=== PATIENT | female | born 1955 | race Caucasian/White ===

== ENCOUNTER → 2017-06-15 | Outpatient (CLI) | payer MEDICARE ==
--- NOTE | 2017-06-15 13:09 | CTL ---
EXAMINATION TYPE: CT Low Dose Lung DATE OF EXAM ORDERED: 06/15/2017 COMPARISON: None HISTORY: . Low Dose CT Lung Screening CT DLP: 69.[address] CTDI: 2.0 mGy IV CONTRAST USED: None. SCREENING VISIT: Second COMPARISON: 04/21/2016 TECHNIQUE: Low dose computed tomography scan was performed through the chest at 1 millimeter thick se ctions and reconstructed images in the coronal plane at [address] DIAGNOSTIC QUALITY: Satisfactory FINDINGS: LUNG NODULES: Right lung: Stable 3 mm nodule right upper lobe at its periphery. No new nodules seen. Left lung: Large calcified granuloma left lower lobe. Stable 3 mm pulmonary nodule left upper lobe. No new nodul es seen. LUNGS: COPD: Severity: Moderate Fibrosis: Severity: Mild Lymph nodes: None Other findings: None RIGHT PLEURAL SPACE: Effusion: None Calcification: None Thickening: None Pneumothorax: None LEFT PLEURAL SPACE: Effusion: None Calcification: None Thickening: None Pneumothorax: None HEART: Heart Size: Mildly enlarged Coronary calcification: Mild Pericardial effusion: None OTHER FINDINGS: Upper abdomen: No significant abnormality Bony thorax: Degenerative changes Supraclavicular region: No significant abnormalityOther: No significant abnormalityI IMPRESSION: Benign FOLLOW UP CT CHEST RECOMMENDATION: Follow-up screening in one year CT LUNG RAD: LUNG RAD CATEGORY 2
== END ==
LOC: RADCTMAIN 11:47
PROVIDERS: ATTEND Internal Medicine
DX: Z12.2 Encounter for screening for malignant neoplasm of respiratory organs (principal); Z87.891 Personal history of nicotine dependence

== ENCOUNTER 2017-11-14 15:40 | Emergency (ER) | payer OTHER, MEDICARE ==
[2017-11-14 15:57] VITALS: TEMP 97.3
[2017-11-14 16:07] LABS: Appearance,Urine Clear (Clear); Bilirubin,Urine Negative (Negative); Blood,Urine Negative (Negative); Color,Urine Light Yellow; Glucose,Urine (UA) Negative (Negative); Ketones,Urine Negative (Negative); Leukocyte Esterase,Urine Negative (Negative); Nitrite,Urine Negative (Negative); Protein,Urine Negative (Negative); Specific Gravity,Urine 1.004 (1.001-1.035); Urobilinogen,Urine <2.0 mg/dL (<2.0)
[2017-11-14] MEDS ORDERED: RX INFO: IV CONTRAST WAS GIVEN 1 EACH MISC MISCELLANE PRN (16:55)
[2017-11-14] MEDS ORDERED: MORPHINE SULFATE 2 MG/ML SYRINGE IVP ONE (17:03)
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
[2017-11-14] MEDS ORDERED: SODIUM CHLORIDE 0.9% 500 ML IV STA (17:14)
[2017-11-14 17:35] LABS: Basophils % (A) 0 %; Eosinophils % (A) 0 %; HCT 42.7 % (34.0-46.0); HGB 13.4 gm/dL (11.4-16.0); Lymphocytes # (A) 2.1 k/uL (1.0-4.8); Lymphocytes % (A) 24 %; MCH 31.3 pg (25.0-35.0); MCHC 31.5 g/dL (31.0-37.0); MCV 99.5 fL (80.0-100.0); Mean Platelet Volume 6.6; Monocytes # (A) 0.5 k/uL (0-1.0); Monocytes % (A) 5 %; Neutrophils # (A) 6.1 k/uL (1.3-7.7); Neutrophils % (A) 69 %; Platelet Count 302 k/uL (150-450); RBC 4.29 m/uL (3.80-5.40); RDW 13.7 % (11.5-15.5); WBC 8.7 k/uL (3.8-10.6)
[2017-11-14 17:39] LABS: ALT 36 U/L (9-52); AST 30 U/L (14-36); Albumin 4.6 g/dL (3.5-5.0); Alkaline Phosphatase 69 U/L (38-126); Amylase 43 U/L (30-110); Anion Gap 9 mmol/L; Blood Urea Nitrogen 19 mg/dL (7-17); Calcium 10.3 mg/dL (8.4-10.2); Carbon Dioxide 28 mmol/L (22-30); Chloride 104 mmol/L (98-107); Glucose 105 mg/dL (74-99); Lipase 41 U/L (23-300); Potassium 5.3 mmol/L (3.5-5.1); Sodium 141 mmol/L (137-145); Total Bilirubin 0.3 mg/dL (0.2-1.3); Total Protein 7.2 g/dL (6.3-8.2)
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
--- NOTE | 2017-11-14 17:57 | XR ---
EXAMINATION TYPE: XR pelvis AP view DATE OF EXAM: 11/14/2017 CLINICAL HISTORY: Pelvic pain TECHNIQUE: A single AP view of the pelvis is obtained. COMPARISON: None. FINDINGS: There is no acute fracture/dislocation evident in the pelvis. The hip and sacroiliac join ts appear symmetric and unremarkable. The overlying soft tissue appears unremarkable. Some type of c atheter overlies the upper pelvis. IMPRESSION: There is no acute fracture or dislocation in the pelvis.
[2017-11-14] MEDS ORDERED: IPRATROPIUM-ALBUTEROL 3 ML NEB INHALATION STA (18:33)
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
[2017-11-14 19:06] VITALS: BP 130/60; RESP 18
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
[2017-11-14 19:08] VITALS: PULSE 80
== END 2017-11-14 19:38 | disposition home or self-care (01) ==
LOC: EC 15:40
DX: S16.1XXA Strain of muscle, fascia and tendon at neck level, initial encounter (principal); R10.12 Left upper quadrant pain; Z87.891 Personal history of nicotine dependence; Z79.899 Other long term (current) drug therapy; Z79.52 Long term (current) use of systemic steroids; Z88.0 Allergy status to penicillin; Z98.890 Other specified postprocedural states; V43.52XA Car driver injured in collision with other type car in traffic accident, initial encounter; Y92.89 Other specified places as the place of occurrence of the external cause
CPT/HCPCS: 36415; 94640; 80053; 82150; 83690; 85025; 81003; 72170; 71046; 72125; 74177; 99284; 96374; 96361; J2270; Q9967

== ENCOUNTER → 2017-12-10 | Outpatient (CLI) | payer MEDICARE ==
--- NOTE | 2017-12-10 16:34 | CT ---
EXAMINATION TYPE: CT abdomen wo con DATE OF EXAM: 12/10/2017 COMPARISON: 11/14/2017 INDICATION: Abdominal pain DLP: 475 mGycm, Automated exposure control for dose reduction was used. CONTRAST: 0 mL of Omnipaque 350. Study performed with Oral Contrast TECHNIQUE: Axial images were obtained from above the diaphragm to the pubic rami in the axial plane a t 5 mm thick sections. Reconstructed images are reviewed on the computer in the coronal plane. FINDINGS: Limited CT sections are obtained the lung bases. There is a 0.7 cm calcification along the medial le ft heart border at the left lung base. Series 3 image 1. This was present previously. Lung bases othe rwise appear clear.. There is a small hiatal hernia present or dilated distal esophagus. Lap band is evident. Contrast is within the stomach. Patient's port appears intact. CT ABDOMEN: Liver: Normal Spleen: Scattered punctate calcified granuloma are present. Pancreas: Normal Adrenal glands: The adrenal glands are normal. Gallbladder: Normal Kidneys: No masses are evident. No hydronephrosis is present. No cysts are present. No renal stone s are evident. Aorta: Vascular calcification is within the aorta. Inferior vena cava: Normal. Loops of bowel distended with oral contrast within the distal small bowel loops appear normal. Proxim al small bowel loops as well as the colon lack oral contrast limiting their evaluation. Anterior abdominal wall appears normal. Subcutaneous tissues appear normal. No internal or anterior a bdominal wall hernia is evident. No hematomas are evident. IMPRESSIONS: 1. No abnormality to account for the patient's abdominal sensation.
== END | disposition home or self-care (01) ==
LOC: RADCTMAIN 15:16
PROVIDERS: ATTEND Surgery
DX: R10.0 Acute abdomen (principal); R10.9 Unspecified abdominal pain
CPT/HCPCS: 74150

== ENCOUNTER 2018-12-27 13:30 | Inpatient (IN) | payer MEDICARE ==
[2018-12-27] MEDS ORDERED: IPRATROPIUM-ALBUTEROL 3 ML NEB INHALATION STA ×2 (14:38→18:52)
--- NOTE | 2018-12-27 14:39 | ED ---
SOB HPI - General Chief Complaint: Shortness of Breath Stated Complaint: SOB Time Seen by Provider: 12/27/18 14:38 Source: patient, RN notes reviewed, old records reviewed Mode of arrival: ambulatory Limitations: no limitations - History of Present Illness Initial Comments: This is a 63-year-old female the ER for evaluation of cough congestion shortness of breath history of COPD History of smoking. Patient states she does not feel well she has no exertional capabilities, severe shortness of breath with any activity. Patient isn't able to even ambulate to her house without getting severely short of breath. Patient stated breathing treatments at home with no significant help. She has been on multiple courses of antibiotics and steroids per primary care at home and has significant worsening symptoms MD Complaint: shortness of breath, cough, "asthma attack", anxiety -: week(s) Severity: moderate Severity scale (1-10): 6 Quality: aching (With cough) Consistency: constant Improves With: rest Worsens With: exertion, movement Known History Of: COPD, asthma Context: recent URI Associated Symptoms: palpitations Treatments Prior to Arrival: bronchodilator - Related Data Home Medications Medication Instructions Recorded Confirmed HYDROcodone/APAP 7.5-325MG [[place] 1 tab PO QID PRN 11/14/17 12/27/18 7.5-325] Ipratropium-Albuterol Nebulize 3 ml INHALATION RT-QID PRN 11/14/17 12/27/18 [Duoneb 0.5 mg-3 mg/3 ml Soln] clonazePAM [KlonoPIN] 1 mg PO TID PRN 11/14/17 12/27/18 Fluticasone/Salmeterol [Advair Hfa 2 puff INHALATION RT-DAILY 12/27/18 12/27/18 230-21 Mcg Inhaler] PARoxetine [Paxil] 10 mg PO DAILY 12/27/18 12/27/18 Allergies Allergy/AdvReac Type Severity Reaction Status Date / Time acetaminophen Allergy Rash/Hives Verified 12/27/18 14:59 [From Tylenol-Codeine #3] codeine Allergy Rash/Hives Verified 12/27/18 14:59 [From Tylenol-Codeine #3] Penicillins Allergy Unknown Verified 12/27/18 14:59 Review of Systems ROS Statement: Those systems with pertinent positive or pertinent negative responses have been documented in the HPI. ROS Other: All systems not noted in ROS Statement are negative. Past Medical History Past Medical History: Asthma, COPD, Osteoarthritis (OA) Additional Past Medical History / Comment(s): back pain History of Any Multi-Drug Resistant Organisms: None Reported Past Surgical History: Hysterectomy, Joint Replacement, Orthopedic Surgery, Tonsillectomy Additional Past Surgical History / Comment(s): lap band surgery,right knee, carpal tunnel, cysts from feet Past Psychological History: Depression Smoking Status: Former smoker Past Alcohol Use History: None Reported Past Drug Use History: None Reported General Exam Limitations: no limitations General appearance: alert, in no apparent distress, anxious Head exam: Present: atraumatic, normocephalic, normal inspection Eye exam: Present: normal appearance, PERRL, EOMI. Absent: scleral icterus, conjunctival injection, periorbital swelling ENT exam: Present: normal exam, mucous membranes moist Neck exam: Present: normal inspection. Absent: tenderness, meningismus, lymphadenopathy Respiratory exam: Present: respiratory distress, wheezes, accessory muscle use, decreased breath sounds, prolonged expiratory. Absent: rales, rhonchi, stridor Cardiovascular Exam: Present: normal rhythm, tachycardia, normal heart sounds. Absent: systolic murmur, diastolic murmur, rubs, gallop, clicks GI/Abdominal exam: Present: soft, normal bowel sounds. Absent: distended, tenderness, guarding, rebound, rigid Extremities exam: Present: normal inspection, full ROM, normal capillary refill. Absent: tenderness, pedal edema, joint swelling, calf tenderness Back exam: Present: normal inspection Neurological exam: Present: alert, oriented X3, CN II-XII intact Psychiatric exam: Present: normal affect, normal mood Skin exam: Present: warm, dry, intact, normal color. Absent: rash Course Vital Signs 12/27/18 12/27/18 12/27/18 14:16 15:04 15:25 Temperature 98.4 F Pulse Rate 93 82 78 Respiratory 18 Rate Blood Pressure 133/68 O2 Sat by Pulse 97 Oximetry 12/27/18 12/27/18 12/27/18 15:43 15:50 16:00 Temperature 98.0 F Pulse Rate 78 87 Respiratory 22 20 20 Rate Blood Pressure 142/81 141/91 O2 Sat by Pulse 99 100 Oximetry 12/27/18 12/27/18 17:00 17:49 Temperature Pulse Rate 79 Respiratory 20 Rate Blood Pressure 139/70 O2 Sat by Pulse 100 97 Oximetry - Reevaluation(s) Reevaluation #1: 12/27/18 18:55 Medical record is reviewed Reevaluation #2: 12/27/18 18:55 Patient began having shortness of breath we'll give repeat breathing treatment - Consultations Consultation #1: Spoke with Dr. Hansen regarding admission, he did evaluate patient here in the ER Medical Decision Making - Medical Decision Making 63 female the ER for eversion positive shortness of breath, COPD exacerbation, asthma exacerbation with outpatient failure. Patient be admitted for continued monitoring of cardiopulmonary status - Lab Data Result diagrams: 12/27/18 14:47 12/27/18 14:47 Lab Results 12/27/18 12/27/18 12/27/18 Range/Units 14:47 14:47 14:47 WBC 8.3 (3.8-10.6) k/uL RBC 4.22 (3.80-5.40) m/uL Hgb 13.9 (11.4-16.0) gm/dL Hct 42.9 (34.0-46.0) % MCV 101.6 H (80.0-100.0) fL MCH 32.8 (25.0-35.0) pg MCHC 32.3 (31.0-37.0) g/dL RDW 15.5 (11.5-15.5) % Plt Count 229 (150-450) k/uL Neutrophils % 92 % Lymphocytes % 4 % Monocytes % 3 % Eosinophils % 1 % Basophils % 0 % Neutrophils # 7.6 (1.3-7.7) k/uL Lymphocytes # 0.3 L (1.0-4.8) k/uL Monocytes # 0.3 (0-1.0) k/uL Eosinophils # 0.1 (0-0.7) k/uL Basophils # 0.0 (0-0.2) k/uL Macrocytosis Slight PT (9.0-12.0) sec INR (<1.2) APTT (22.0-30.0) sec Sodium 136 L (137-145) mmol/L Potassium 5.2 H (3.5-5.1) mmol/L Chloride 102 (98-107) mmol/L Carbon Dioxide 27 (22-30) mmol/L Anion Gap 7 mmol/L BUN 25 H (7-17) mg/dL Creatinine 1.21 H (0.52-1.04) mg/dL Est GFR (CKD-EPI)AfAm 55 (>60 ml/min/1.73 sqM) Est GFR (CKD-EPI)NonAf 48 (>60 ml/min/1.73 sqM) Glucose 96 (74-99) mg/dL Calcium 10.3 H (8.4-10.2) mg/dL Magnesium 2.4 H (1.6-2.3) mg/dL Total Bilirubin 0.6 (0.2-1.3) mg/dL AST 73 H (14-36) U/L ALT 96 H (9-52) U/L Alkaline Phosphatase 70 (38-126) U/L Troponin I (0.000-0.034) ng/mL NT-Pro-B Natriuret Pep 320 pg/mL Total Protein 7.3 (6.3-8.2) g/dL Albumin 4.7 (3.5-5.0) g/dL 12/27/18 12/27/18 Range/Units 14:47 14:47 WBC (3.8-10.6) k/uL RBC (3.80-5.40) m/uL Hgb (11.4-16.0) gm/dL Hct (34.0-46.0) % MCV (80.0-100.0) fL MCH (25.0-35.0) pg MCHC (31.0-37.0) g/dL RDW (11.5-15.5) % Plt Count (150-450) k/uL Neutrophils % % Lymphocytes % % Monocytes % % Eosinophils % % Basophils % % Neutrophils # (1.3-7.7) k/uL Lymphocytes # (1.0-4.8) k/uL Monocytes # (0-1.0) k/uL Eosinophils # (0-0.7) k/uL Basophils # (0-0.2) k/uL Macrocytosis PT 9.7 (9.0-12.0) sec INR 0.9 (<1.2) APTT 20.8 L (22.0-30.0) sec Sodium (137-145) mmol/L Potassium (3.5-5.1) mmol/L Chloride (98-107) mmol/L Carbon Dioxide (22-30) mmol/L Anion Gap mmol/L BUN (7-17) mg/dL Creatinine (0.52-1.04) mg/dL Est GFR (CKD-EPI)AfAm (>60 ml/min/1.73 sqM) Est GFR (CKD-EPI)NonAf (>60 ml/min/1.73 sqM) Glucose (74-99) mg/dL Calcium (8.4-10.2) mg/dL Magnesium (1.6-2.3) mg/dL Total Bilirubin (0.2-1.3) mg/dL AST (14-36) U/L ALT (9-52) U/L Alkaline Phosphatase (38-126) U/L Troponin I 0.041 H* (0.000-0.034) ng/mL NT-Pro-B Natriuret Pep pg/mL Total Protein (6.3-8.2) g/dL Albumin (3.5-5.0) g/dL - EKG Data -: EKG Interpreted by Me (EKG shows sinus rhythm rate of 86 424, QRS 74, QTC 368 ) - Radiology Data Radiology results: report reviewed (Chest x-rays negative for acute disease), image reviewed Disposition Clinical Impression: Acute exacerbation of chronic obstructive airways disease, Asthma with exacerbation Disposition: ADMITTED IP TO THIS HOSP Condition: Fair Is patient prescribed a controlled substance at d/c from ED?: No Referrals: Michael Clarke MD [Primary Care Provider] - 1-2 days
[2018-12-27 15:19] LABS: INR 0.9 (<1.2); Prothrombin Time 9.7 sec (9.0-12.0)
[2018-12-27 15:21] LABS: Basophils % (A) 0 %; Eosinophils # (A) 0.1 k/uL (0-0.7); Eosinophils % (A) 1 %; HCT 42.9 % (34.0-46.0); HGB 13.9 gm/dL (11.4-16.0); Lymphocytes # (A) 0.3 k/uL (1.0-4.8); Lymphocytes % (A) 4 %; MCH 32.8 pg (25.0-35.0); MCHC 32.3 g/dL (31.0-37.0); MCV 101.6 fL (80.0-100.0); Macrocytosis Slight; Mean Platelet Volume 6.2; Monocytes # (A) 0.3 k/uL (0-1.0); Monocytes % (A) 3 %; Neutrophils # (A) 7.6 k/uL (1.3-7.7); Neutrophils % (A) 92 %; Platelet Count 229 k/uL (150-450); RBC 4.22 m/uL (3.80-5.40); RDW 15.5 % (11.5-15.5); WBC 8.3 k/uL (3.8-10.6)
[2018-12-27 15:23] LABS: Albumin 4.7 g/dL (3.5-5.0); Calcium 10.3 mg/dL (8.4-10.2); Magnesium 2.4 mg/dL (1.6-2.3); Potassium 5.2 mmol/L (3.5-5.1); Total Bilirubin 0.6 mg/dL (0.2-1.3); Total Protein 7.3 g/dL (6.3-8.2)
[2018-12-27 15:45] LABS: Partial Thromboplastin Time 20.8 sec (22.0-30.0)
--- NOTE | 2018-12-27 16:31 | XR ---
EXAMINATION TYPE: XR chest 1V portable DATE OF EXAM: 12/27/2018 COMPARISON: Chest x-ray November 14, 2017 HISTORY: Shortness of breath TECHNIQUE: Single frontal view of the chest is obtained. FINDINGS: Calcified nodules or granulomas left lung are redemonstrated. There is no focal air space o pacity, pleural effusion, or pneumothorax seen. The cardiac silhouette size is within normal limits atherosclerotic change in aortic knob. The osseous structures are intact. IMPRESSION: No acute process. No significant change from prior.
[2018-12-27] MEDS ORDERED: methylPREDNISolone SOD SUCCI 125 MG/2 ML VIAL IV STA (18:52)
[2018-12-27] MEDS: SODIUM CHLORIDE 0.9% 1,000 ML IV SCH (19:50)
[2018-12-27] MEDS ORDERED: ALBUTEROL NEBULIZED 2.5 MG/3 ML INHALATION STA (20:39)
[2018-12-27] MEDS: FAMOTIDINE 20 MG TAB PO SCH (22:06)
[2018-12-27] MEDS: HYDROcodone/APAP 7.5-325MG 1 EACH TAB PO PRN (22:08)
--- NOTE | 2018-12-27 22:22 | HP ---
HISTORY AND PHYSICAL Mrs. Danielle is a 63-year-old female who presented to the emergency room with a chief complaint of shortness of breath. HISTORY OF PRESENT ILLNESS: The patient has had for the past several weeks now increasing cough and phlegm production and shortness of breath for which she had received a couple courses of outpatient antibiotics and corticosteroids. Apparently over the weekend and even last week, she was not doing any better. She then increased the corticosteroids she was taken but became more short of breath and came to the emergency room. No unusual chest pain. No fever or chills. She has not been able though to even ambulate about her house without getting short of breath and almost feel like passing out at times. The patient does have a history of moderately persistent asthma with intermittent wheezing. She has had a previous history of smoking and did have a low-dose CT scan performed about a year and half ago, which revealed a small nodule that has been unchanged. She does have chronic pain syndrome related to osteoarthritis of her back and she is on chronic pain medication, but no history of hypertension, diabetes, or stroke. PREVIOUS SURGERIES: Include hysterectomy, previous lap band surgery. She has had right knee joint replacement, carpal tunnel, hysterectomy, tonsillectomy in the past. HOME MEDICATIONS: Include Advair 230-21 2 inhalations twice a day. Klonopin for chronic anxiety 1 mg 3 times a day as needed, Paxil also for anxiety 10 mg daily, DuoNeb respiratory treatments 4 times a day 3 mL and [place] hydrocodone 7.5-325 1 tab 4 times a day as needed for her chronic pain. ALLERGIES: SHE DOES HAVE HISTORY OF ALLERGIES TO REGULAR CODEINE IN THE PAST AND PENICILLINS. REVIEW OF SYSTEMS: Has mentioned in the history of present illness, she denies any unusual headache or visual disturbances. No recent falls or trauma. No nausea or vomiting. No urinary or bowel symptoms. No blood in her stool. No dysuria. No unusual edema. FAMILY HISTORY: Positive for diabetes with her son. SOCIAL HISTORY: She is a former smoker, quit in 2017. She rarely has any alcohol usage. She still lives independently, is not presently . PHYSICAL EXAMINATION: She is alert and oriented, lying in the stretcher in the emergency room. Vital signs revealed temperature of 98.3 with a pulse of 78, respirations 22, blood pressure 141/91, and she was 100% saturated on 2 L. head and neck exam reveals extraocular movements to be intact. Neck is not stiff. There are no carotid bruits, thyromegaly or adenopathy detected. Breasts and pelvic exam is deferred. Lungs do reveal some diffuse inspiratory and expiratory wheezing. Heart tones were regular without murmurs or rubs appreciated. ABDOMEN: Soft and nontender without rebound, guarding or masses detected. Extremities revealed no edema. Neurologically, she was alert and oriented. Cranial nerves intact. No focal weakness in the extremities. LABORATORY TESTING: Revealed a white count of 8.3, hemoglobin 13.9 and a platelet count of 229. Her INR is 0.9. Sodium was 136 with a potassium of 5.2, CO2 content 27, BUN of 25 with a creatinine 1.21, giving her a current GFR and of 48. Her calcium was 10.3, magnesium 2.4. AST was 73, ALT was 96. Troponin slightly elevated at 0.041. Albumin was 4.7. BNP was 320, albumin 4.7. Her EKG showed a normal sinus rhythm, no evidence of ischemic changes and the patient's chest x-ray showed no acute process and there was a granuloma left lung base that was unchanged. No definite infiltrate. IMPRESSION: 1. Asthmatic bronchitis with a exacerbation of underlying chronic persistent asthma in a former smoker. 2. Does have some likely dehydration and prerenal azotemia with elevated BUN and creatinine and also elevated liver function tests. 3. History of polyosteoarthritis specifically of the back and also previous left knee surgery for which she has chronic pain and is on [place]. 4. She also has a chronic anxiety disorder for which she is on Klonopin and Paxil. PLAN: At this time as patient is being admitted, we will continue with the respiratory treatments, corticosteroids, maintenance inhalers. Followup lab testing to be done. Gentle hydration. Consult to Pulmonary Medicine and further recommendations and treatment. Prognosis guarded at this point. MMODL / IJN: [id number] / JOSR
[2018-12-27] MEDS: IPRATROPIUM-ALBUTEROL 3 ML NEB INHALATION PRN (23:08)
[2018-12-27] MEDS: clonazePAM 1 MG TAB PO PRN (23:42)
[2018-12-28] MEDS: methylPREDNISolone SOD SUCCI 125 MG/2 ML VIAL IV SCH ×5 (01:34→23:06)
[2018-12-28] MEDS: IPRATROPIUM-ALBUTEROL 3 ML NEB INHALATION PRN (03:08)
[2018-12-28] MEDS: LORazepam 2 MG/ML INJ IV PRN (03:40)
[2018-12-28] MEDS: SODIUM CHLORIDE 0.9% 1,000 ML IV SCH ×2 (05:56→16:12)
[2018-12-28] MEDS: HYDROcodone/APAP 7.5-325MG 1 EACH TAB PO PRN ×3 (07:20→22:22)
[2018-12-28] MEDS: IPRATROPIUM-ALBUTEROL 3 ML NEB INHALATION SCH ×4 (07:40→20:47)
[2018-12-28] MEDS: SYMBICORT 160-4.5 MCG INHALER INHALATION SCH ×2 (07:40→20:47)
[2018-12-28] MEDS ORDERED: ENOXAPARIN 40 MG/0.4 ML SYRINGE SQ SCH (09:00)
[2018-12-28] MEDS: PARoxetine 10 MG TAB PO SCH (09:16)
[2018-12-28] MEDS: FAMOTIDINE 20 MG TAB PO SCH ×2 (09:16→22:22)
[2018-12-28 10:41] LABS: Creatine Kinase MB 5.8 ng/mL (0.0-2.4)
--- NOTE | 2018-12-28 11:55 | P.PN ---
Progress Note - Text The patient is a 63-year-old female who has a chronic persistent asthma. Usually response to cortical steroids and antibiotics if needed as outpatient. This particular time patient had received 2 courses of prednisone taper without much relief of her shortness of breath. Actually worsened to the point where she could hardly ambulate in the house. She does have a history of tobacco use disorder in the past. Patient has been treated overnight with IV corticosteroids and respiratory treatments. This morning she states she feels somewhat better but still intermittently feels that she needs a respiratory treatment. No marked phlegm production. Temperature is 97.9 with a pulse of 75 and respirations 18. Blood pressure 124/ 71 and she is 99% saturated on 2 L nasal cannula. Patient still retaining some wheezing on expiration diffusely. Heart tones were regular. No unusual edema. No focal neurological changes. No new labs today but will repeat tomorrow morning. Impressions and plans chronic persistent asthma with exacerbation. Likely asthmatic bronchitis. Patient also had some prerenal azotemia with elevated BUN and creatinine along with elevated liver function tests. osteoarthritis with chronic pain syndrome. Chronic anxiety disorder. Continue with present corticosteroids and respiratory treatments. We'll await further recommendations from pulmonary medicine as discussed with patient. We'll repeat CBC and comprehensive metabolic panel for tomorrow morning.
[2018-12-28] MEDS: clonazePAM 1 MG TAB PO PRN ×2 (13:52→22:22)
--- NOTE | 2018-12-28 18:09 | P.CNPUL ---
History of Present Illness Consult date: 12/28/18 Reason for consult: dyspnea, cough, asthma, COPD Chief complaint: Shortness of breath cough and wheezing and failed outpatient therapy History of present illness: 63-year-old female with a remote history of smoking she expresses that she has smoked half to one pack a day for few years than his stopped long time ago, patient has a history of chronic persistent asthma has seen a local gear machine operator in the past but now does not want to see that gear machine operator, patient feels that her asthma medications are not working in the last 2 weeks she's been more short of breath she has been treated with multiple courses of prednisone without any significant relief she does have some dry nonproductive cough denies any chest pain does get short of breath on minimal activity and exertion, I reviewed data revealed that patient had a low dose CT about a year ago and a small nodule has been noted which was stable and unchanged, patient has been on Advair 230/21 2 puffs 2 times a day at home also has a history of significant degree of anxiety disorder she has been using nebulizer treatment at home she feels that when she is on prednisone her respiratory status improved it appears that she has not been formally evaluated for biologic agent for chronic persistent severe ALLERGIC asthma, she denies any presence of birds or bird feeder in around the house, she does have a cat visit short hair does not shed 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 patient does not feel that she has something to do with that Review of Systems All systems: negative Past Medical History Past Medical History: Asthma, COPD, Osteoarthritis (OA) Additional Past Medical History / Comment(s): back pain, heart murmur, MRSA of the hand 2014 History of Any Multi-Drug Resistant Organisms: MRSA Date of last positivie culture/infection: 2014 MDRO Source:: Hand Past Surgical History: Hysterectomy, Joint Replacement, Orthopedic Surgery, Tonsillectomy Additional Past Surgical History / Comment(s): lap band surgery,right knee, carpal tunnel, cysts from feet Past Psychological History: Anxiety, Depression Smoking Status: Former smoker Past Alcohol Use History: None Reported Past Drug Use History: None Reported Medications and Allergies Home Medications Medication Instructions Recorded Confirmed Type HYDROcodone/APAP 7.5-325MG [[place] 1 tab PO QID PRN 11/14/17 12/27/18 History 7.5-325] Ipratropium-Albuterol Nebulize 3 ml INHALATION RT-QID PRN 11/14/17 12/27/18 History [Duoneb 0.5 mg-3 mg/3 ml Soln] clonazePAM [KlonoPIN] 1 mg PO TID PRN 11/14/17 12/27/18 History Fluticasone/Salmeterol [Advair Hfa 2 puff INHALATION RT-BID 12/27/18 12/27/18 History 230-21 Mcg Inhaler] PARoxetine [Paxil] 10 mg PO DAILY 12/27/18 12/27/18 History Allergies Allergy/AdvReac Type Severity Reaction Status Date / Time codeine Allergy Rash/Hives Verified 12/27/18 14:59 [From Tylenol-Codeine #3] latex Allergy Rash/Hives Verified 12/27/18 20:57 Penicillins Allergy Unknown Verified 12/27/18 14:59 Physical Exam Vitals: Vital Signs Temp Pulse Pulse Pulse Resp BP BP 12/28/18 16:36 70 12/28/18 16:22 72 12/28/18 14:35 98.6 F 81 16 122/67 12/28/18 12:00 75 12/28/18 11:48 75 12/28/18 07:53 80 12/28/18 07:49 97.9 F 71 18 124/71 12/28/18 07:42 74 12/28/18 05:24 98.4 F 75 18 115/69 12/28/18 03:19 84 12/28/18 03:09 92 12/28/18 00:40 80 18 12/27/18 23:18 90 18 12/27/18 23:08 92 18 12/27/18 22:33 97.7 F 77 18 147/67 12/27/18 20:00 98.3 F 73 22 141/91 12/27/18 19:15 90 12/27/18 19:00 75 20 155/96 12/27/18 18:55 86 Pulse Ox 12/28/18 16:36 12/28/18 16:22 97 12/28/18 14:35 96 12/28/18 12:00 12/28/18 11:48 12/28/18 07:53 12/28/18 07:49 99 12/28/18 07:42 98 12/28/18 05:24 97 12/28/18 03:19 12/28/18 03:09 12/28/18 00:40 12/27/18 23:18 12/27/18 23:08 12/27/18 22:33 100 12/27/18 20:00 100 12/27/18 19:15 12/27/18 19:00 99 12/27/18 18:55 Intake and Output 12/28/18 12/28/18 12/28/18 06:59 14:59 22:59 Intake Total 240 Balance 240 Intake: Oral 240 Other: Voiding Method Bedside Commode Bedside Commode Bedside Commode # Voids 3 1 - Constitutional General appearance: average body habitus, cooperative, disheveled, mild distress - EENT Eyes: EOMI, PERRLA, poor dentition, normal appearance ENT: hearing grossly normal, normal oropharynx Ears: bilateral: normal - Neck Carotids: bilateral: upstroke normal, bruit absent Thyroid: bilateral: normal size - Respiratory Respiratory: bilateral: diminished, rhonchi, wheezing (Draining both inspiratory expiratory phases) - Cardiovascular Rhythm: regular Heart sounds: normal: S1, S2 - Gastrointestinal General gastrointestinal: decreased bowel sounds, distended, soft - Neurologic Neurologic: CNII-XII intact - Musculoskeletal Musculoskeletal: gait normal, generalized weakness, strength equal bilaterally - Psychiatric Psychiatric: A&O x's 3, appropriate affect, intact judgment & insight Results - Laboratory Findings CBC and BMP: 12/27/18 14:47 12/27/18 14:47 PT/INR, D-dimer PT 9.7 sec (9.0-12.0) 12/27/18 14:47 INR 0.9 (<1.2) 12/27/18 14:47 Abnormal lab findings: Abnormal Labs 12/27/18 12/27/18 12/27/18 14:47 14:47 14:47 MCV 101.6 H Lymphocytes # 0.3 L APTT 20.8 L Sodium 136 L Potassium 5.2 H BUN 25 H Creatinine 1.21 H Calcium 10.3 H Magnesium 2.4 H AST 73 H ALT 96 H Total Creatine Kinase CK-MB (CK-2) Troponin I 12/27/18 12/28/18 14:47 09:24 MCV Lymphocytes # APTT Sodium Potassium BUN Creatinine Calcium Magnesium AST ALT Total Creatine Kinase 138 H CK-MB (CK-2) 5.8 H Troponin I 0.041 H* - Diagnostic Findings Chest x-ray: report reviewed (Overall no significant pathology noted), image reviewed Assessment and Plan Assessment: Acute asthma exacerbation likely Baseline chronic persistent severe asthma Suspect presence of ALLERGIC asthma History of remote smoking and nicotine use possible Baseline COPD cannot be excluded Generalized anxiety disorder Plan: Continue bronchodilator IV steroids Continuation of home medications Will order labs for ALLERGIC asthma Patient to be evaluated further outpatient setting with pulmonary function testing and for biologic agents for chronic persistent severe ALLERGIC asthma Time with Patient: Greater than 30
[2018-12-29] MEDS: SODIUM CHLORIDE 0.9% 1,000 ML IV SCH ×2 (00:11→11:25)
[2018-12-29] MEDS: LORazepam 2 MG/ML INJ IV PRN (04:11)
[2018-12-29] MEDS: HYDROcodone/APAP 7.5-325MG 1 EACH TAB PO PRN ×3 (04:15→17:22)
[2018-12-29] MEDS: IPRATROPIUM-ALBUTEROL 3 ML NEB INHALATION PRN ×3 (04:17→19:22)
[2018-12-29] MEDS: methylPREDNISolone SOD SUCCI 125 MG/2 ML VIAL IV SCH ×4 (05:38→23:14)
[2018-12-29] MEDS: clonazePAM 1 MG TAB PO PRN ×2 (05:50→23:18)
[2018-12-29] MEDS: IPRATROPIUM-ALBUTEROL 3 ML NEB INHALATION SCH ×4 (07:57→19:22)
[2018-12-29] MEDS: SYMBICORT 160-4.5 MCG INHALER INHALATION SCH ×2 (07:57→19:29)
--- NOTE | 2018-12-29 08:01 | P.PN ---
Progress Note - Text The patient is a 63-year-old female who has chronic persistent asthma and was admitted with an exacerbation after failing outpatient treatments with antibiotics and corticosteroids 2. Patient has had some initial relief with IV cortisone and respiratory treatments along with in her inhalers but earlier this morning she did become more short of breath. She is somewhat anxious. Vital signs show temperature 97.5 with a pulse of 67 and respirations 20. Blood pressure 121/63 and she is 98% saturated on 2 L nasal cannula. She does have some bilateral inspiratory wheezing that is still somewhat worsened yesterday. Heart tones were regular. Abdomen nontender. No unusual edema. She is alert and oriented without focal neurological changes. Repeat competence of metabolic panel and CBC are pending. Impressions and plans Pulmonary medicine note regarded and agree with suspected ALLERGIC asthma and need for further evaluation and treatment. This was discussed with patient at bedside this morning. Presently we'll continue with her IV corticosteroids along with her inhalers and respiratory treatments pending further recommendations from pulmonary medicine. Awaiting lab results from this morning also.
[2018-12-29] MEDS: FAMOTIDINE 20 MG TAB PO SCH ×2 (08:16→20:38)
[2018-12-29] MEDS: PARoxetine 10 MG TAB PO SCH (08:16)
[2018-12-29 09:10] LABS: Basophils % (A) 0 %; Eosinophils # (A) 0.1 k/uL (0-0.7); Eosinophils % (A) 1 %; HCT 41.4 % (34.0-46.0); HGB 12.8 gm/dL (11.4-16.0); Hypochromasia Slight; Lymphocytes # (A) 0.2 k/uL (1.0-4.8); Lymphocytes % (A) 2 %; MCH 32.1 pg (25.0-35.0); MCHC 30.9 g/dL (31.0-37.0); MCV 103.8 fL (80.0-100.0); Macrocytosis Moderate; Mean Platelet Volume 6.5; Monocytes # (A) 0.3 k/uL (0-1.0); Monocytes % (A) 3 %; Neutrophils # (A) 12.4 k/uL (1.3-7.7); Neutrophils % (A) 95 %; Platelet Count 192 k/uL (150-450); RBC 3.99 m/uL (3.80-5.40); RDW 15.3 % (11.5-15.5); WBC 13.1 k/uL (3.8-10.6)
[2018-12-29 09:39] LABS: Albumin 3.8 g/dL (3.5-5.0); Calcium 9.7 mg/dL (8.4-10.2); Potassium 5.2 mmol/L (3.5-5.1); Total Bilirubin 0.5 mg/dL (0.2-1.3)
[2018-12-30] MEDS: IPRATROPIUM-ALBUTEROL 3 ML NEB INHALATION SCH ×5 (01:42→19:26)
[2018-12-30] MEDS: IPRATROPIUM-ALBUTEROL 3 ML NEB INHALATION PRN ×2 (01:42→04:04)
[2018-12-30] MEDS: HYDROcodone/APAP 7.5-325MG 1 EACH TAB PO PRN ×3 (04:33→20:18)
[2018-12-30] MEDS: methylPREDNISolone SOD SUCCI 125 MG/2 ML VIAL IV SCH ×4 (06:31→23:20)
[2018-12-30] MEDS: SYMBICORT 160-4.5 MCG INHALER INHALATION SCH ×2 (07:16→19:26)
--- NOTE | 2018-12-30 07:53 | P.PN ---
Progress Note - Text The patient is a 63-year-old female with chronic persistent asthma that has been severe over the past month or so, not responding to outpatient management with corticosteroids and antibiotics. Apparently she still had a rough night to requiring frequent respiratory treatments. She remained somewhat anxious. No apparent chest pain. Not much phlegm production. Patient has just finished a respiratory treatment. She states she feels somewhat better. Last vital signs show a temperature of 96.7 with a pulse of 70 and respirations 20. Blood pressure 150/72 and she was 96% saturated on 2 L. Nasal cannula. Lungs do reveal a slow expiratory wheeze. Heart tones were regular. Abdomen is nontender. No unusual edema. She is alert and oriented without focal deficits. She does seem to be somewhat anxious. Laboratory From yesterday her white count increased to 13.1 but she is on corticosteroids. Hemoglobin stable at 12.8 and platelets 192. Sodium was 136 with a potassium 5.2. Liver function tests were improved with AST decrease in the 31 and ALT decreasing down to 66. IgE was 4.83. Impressions and plans Patient with exacerbation of asthma. Underlying severe chronic persistent. We'll continue with respiratory treatments and rates. She is on her inhalers. With prednisone and long acting beta agonists. We'll wait for further recommendations from pulmonary medicine. She is on medication for her generalized chronic anxiety
[2018-12-30] MEDS: SODIUM CHLORIDE 0.9% 1,000 ML IV SCH ×3 (08:07→18:08)
[2018-12-30] MEDS: clonazePAM 1 MG TAB PO PRN (08:08)
[2018-12-30] MEDS: FAMOTIDINE 20 MG TAB PO SCH ×2 (08:08→20:18)
[2018-12-30] MEDS: PARoxetine 10 MG TAB PO SCH (08:08)
--- NOTE | 2018-12-30 15:01 | P.PN ---
Subjective Progress Note Date: 12/30/18 Principal diagnosis: Acute asthma exacerbation, steroid dependent chronic severe persistent asthma with acute exacerbation, generalized anxiety disorder, history of remote smoking with possible some baseline COPD, evaluate for ALLERGIC asthma 12/30/2018, patient seen eval reexamined during the rounds clinically patient is slightly better with improved breathing however is still have ongoing intermittent wheezing, the hypersensitive pneumonitis panel is pending, IgE level was done noted very low appears to be severely suppressed likely related to IV steroids, patient would like to go home can benefit from performist which is long-acting better to agonist along with Pulmicort pending insurance approval 63-year-old female with a remote history of smoking she expresses that she has smoked half to one pack a day for few years than his stopped long time ago, patient has a history of chronic persistent asthma has seen a local auto service representative in the past but now does not want to see that auto service representative, patient feels that her asthma medications are not working in the last 2 weeks she's been more short of breath she has been treated with multiple courses of prednisone without any significant relief she does have some dry nonproductive cough denies any chest pain does get short of breath on minimal activity and exertion, I reviewed data revealed that patient had a low dose CT about a year ago and a small nodule has been noted which was stable and unchanged, patient has been on Advair 230/21 2 puffs 2 times a day at home also has a history of significant degree of anxiety disorder she has been using nebulizer treatment at home she feels that when she is on prednisone her respiratory status improved it appears that she has not been formally evaluated for biologic agent for chronic persistent severe ALLERGIC asthma, she denies any presence of birds or bird feeder in around the house, she does have a cat visit short hair does not shed 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 not feel that she has something to do with that Objective - Vital Signs Vital signs: Vital Signs Temp 96.7 F L 12/30/18 05:00 Pulse 74 12/30/18 11:18 Resp 20 12/30/18 05:00 BP 150/72 12/30/18 05:00 Pulse Ox 96 12/30/18 05:00 Intake & Output 12/29/18 12/30/18 12/30/18 18:59 06:59 18:59 Other: Voiding Method Toilet Toilet Toilet # Voids 3 2 - Exam - Constitutional General appearance: average body habitus, cooperative, disheveled, mild distress - EENT Eyes: EOMI, PERRLA, poor dentition, normal appearance ENT: hearing grossly normal, normal oropharynx Ears: bilateral: normal - Neck Carotids: bilateral: upstroke normal, bruit absent Thyroid: bilateral: normal size - Respiratory Respiratory: bilateral: diminished, rhonchi, wheezing (Draining both inspiratory expiratory phases) - Cardiovascular Rhythm: regular Heart sounds: normal: S1, S2 - Gastrointestinal General gastrointestinal: decreased bowel sounds, distended, soft - Neurologic Neurologic: CNII-XII intact - Musculoskeletal Musculoskeletal: gait normal, generalized weakness, strength equal bilaterally - Psychiatric Psychiatric: A&O x's 3, appropriate affect, intact judgment & insight - Labs CBC & Chem 7: 12/29/18 08:34 12/29/18 08:34 Assessment and Plan Assessment: Acute asthma exacerbation likely Baseline chronic persistent severe asthma Suspect presence of ALLERGIC asthma History of remote smoking and nicotine use possible Baseline COPD cannot be excluded Generalized anxiety disorder Plan: Continue bronchodilator IV steroids, can be switched to oral bronchodilators at the time of discharge Continuation of home medications Awaiting reports for the labs of ALLERGIC asthma Patient to be evaluated further outpatient setting with pulmonary function testing and for biologic agents for chronic persistent severe ALLERGIC asthma We'll see if patient can be approved for Pulmicort and Perforomist Time with Patient: Greater than 30
[2018-12-30] MEDS ORDERED: DOCUSATE 100 MG CAP PO PRN (20:23)
[2018-12-31] MEDS: IPRATROPIUM-ALBUTEROL 3 ML NEB INHALATION PRN ×2 (03:32→23:38)
[2018-12-31] MEDS: SODIUM CHLORIDE 0.9% 1,000 ML IV SCH ×3 (03:37→21:32)
[2018-12-31] MEDS: HYDROcodone/APAP 7.5-325MG 1 EACH TAB PO PRN ×3 (03:37→21:33)
[2018-12-31] MEDS: methylPREDNISolone SOD SUCCI 125 MG/2 ML VIAL IV SCH ×4 (06:08→23:19)
--- NOTE | 2018-12-31 07:56 | P.PN ---
Progress Note - Text The patient is a 63-year-old female who has rather chronic severe persistent ALLERGIC asthma with an exacerbation that was not responding to outpatient treatments 2. Patient has been placed on IV corticosteroids and respiratory treatments over the past few days with gradual improvement in her symptoms. This morning she states she feels much better although she is still short of breath with exertion in the room. No chest pain. No nausea or vomiting. Her sister is present in the room with her this morning. Vital signs show a temperature of 98.3 with a pulse of 80 and respirations 20. They are unlabored. Blood pressure 128/62 and she is 99% saturated on 2 L. Lungs do show an and expiratory wheeze which is almost cleared. Heart tones were regular. Abdomen nontender. No edema. No neurological changes. No new labs this morning. Impression and plans Resolving exacerbation of ALLERGIC asthma. Associated with chronic severe persistent ALLERGIC asthma. I discussed with patient and sister in room. Possible discharge later today if okay with Dr. Ruiz, pulmonary medicine. Discussed importance of following up with pulmonary medicine for further testing and possible treatment of her underlying ALLERGIC asthma to prevent further exacerbations. Also will see patient back in the office next week. We'll await Dr. Ruiz's recommendations for outpatient medications and treatment. Home oxygen. Prognosis overall is good with continued sensation of smoking and compliance with workup and treatments. Discussed with nursing staff this morning.
[2018-12-31] MEDS: SYMBICORT 160-4.5 MCG INHALER INHALATION SCH ×2 (08:02→19:11)
[2018-12-31] MEDS: IPRATROPIUM-ALBUTEROL 3 ML NEB INHALATION SCH ×4 (08:02→19:11)
[2018-12-31] MEDS: PARoxetine 10 MG TAB PO SCH (09:38)
[2018-12-31] MEDS: FAMOTIDINE 20 MG TAB PO SCH ×2 (09:38→21:33)
--- NOTE | 2018-12-31 14:36 | P.PN ---
Subjective Progress Note Date: 12/31/18 Principal diagnosis: Acute asthma exacerbation, steroid dependent chronic severe persistent asthma with acute exacerbation, generalized anxiety disorder, history of remote smoking with possible some baseline COPD, evaluate for ALLERGIC asthma 12/31/2018, patient seen evjuan examined during the rounds clinically slightly improved though by the head and acute episode of shortness of breath and wheezing post shower have clear audible wheezing has dry nonproductive cough denies any chest pain it appears that patient is not ready for discharge I have written the prescription for perform mist, Pulmicort, DuoNeb as needed and tapering steroids agree with discharge planning next 24 hours if remains stable in the meantime continue IV steroids and breathing treatments and follow clinical course closely 12/30/2018, patient seen florinda reexamined during the rounds clinically patient is slightly better with improved breathing however is still have ongoing intermittent wheezing, the hypersensitive pneumonitis panel is pending, IgE level was done noted very low appears to be severely suppressed likely related to IV steroids, patient would like to go home can benefit from performist which is long-acting better to agonist along with Pulmicort pending insurance approval 63-year-old female with a remote history of smoking she expresses that she has smoked half to one pack a day for few years than his stopped long time ago, patient has a history of chronic persistent asthma has seen a local perinatal technician in the past but now does not want to see that perinatal technician, patient feels that her asthma medications are not working in the last 2 weeks she's been more short of breath she has been treated with multiple courses of prednisone without any significant relief she does have some dry nonproductive cough denies any chest pain does get short of breath on minimal activity and exertion, I reviewed data revealed that patient had a low dose CT about a year ago and a small nodule has been noted which was stable and unchanged, patient has been on Advair 230/21 2 puffs 2 times a day at home also has a history of significant degree of anxiety disorder she has been using nebulizer treatment at home she feels that when she is on prednisone her respiratory status improved it appears that she has not been formally evaluated for biologic agent for chronic persistent severe ALLERGIC asthma, she denies any presence of birds or bird feeder in around the house, she does have a cat visit short hair does not shed 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 Q10H [facility] Rx#:[id number] Oral 480 Other: Voiding Method Toilet Toilet Toilet # Voids 2 # Bowel Movements 1 - Exam - Constitutional General appearance: average body habitus, cooperative, disheveled, mild distress - EENT Eyes: EOMI, PERRLA, poor dentition, normal appearance ENT: hearing grossly normal, normal oropharynx Ears: bilateral: normal - Neck Carotids: bilateral: upstroke normal, bruit absent Thyroid: bilateral: normal size - Respiratory Respiratory: bilateral: diminished, rhonchi, wheezing (Draining both inspiratory expiratory phases) - Cardiovascular Rhythm: regular Heart sounds: normal: S1, S2 - Gastrointestinal General gastrointestinal: decreased bowel sounds, distended, soft - Neurologic Neurologic: CNII-XII intact - Musculoskeletal Musculoskeletal: gait normal, generalized weakness, strength equal bilaterally - Psychiatric Psychiatric: A&O x's 3, appropriate affect, intact judgment & insight - Labs CBC & Chem 7: 12/29/18 08:34 12/29/18 08:34 Assessment and Plan Assessment: Acute asthma exacerbation likely Baseline chronic persistent severe asthma Suspect presence of ALLERGIC asthma History of remote smoking and nicotine use possible Baseline COPD cannot be excluded Generalized anxiety disorder Plan: Continue bronchodilator IV steroids, can be switched to oral bronchodilators at the time of discharge, his prescription provided Continuation of home medications [facility]scape also provided for a Perforomist and Pulmicort Awaiting reports for the labs of ALLERGIC asthma Patient to be evaluated further outpatient setting with pulmonary function testing and for biologic agents for chronic persistent severe ALLERGIC asthma Time with Patient: Greater than 30
[2018-12-31] MEDS: clonazePAM 1 MG TAB PO PRN (21:33)
[2019-01-01] MEDS: IPRATROPIUM-ALBUTEROL 3 ML NEB INHALATION PRN ×2 (03:40→23:42)
[2019-01-01] MEDS: methylPREDNISolone SOD SUCCI 125 MG/2 ML VIAL IV SCH ×4 (05:35→23:15)
[2019-01-01] MEDS: HYDROcodone/APAP 7.5-325MG 1 EACH TAB PO PRN ×3 (05:35→19:14)
[2019-01-01] MEDS: SODIUM CHLORIDE 0.9% 1,000 ML IV SCH ×3 (05:35→20:46)
[2019-01-01] MEDS: PARoxetine 10 MG TAB PO SCH (07:52)
[2019-01-01] MEDS: FAMOTIDINE 20 MG TAB PO SCH ×2 (07:52→20:43)
[2019-01-01] MEDS: SYMBICORT 160-4.5 MCG INHALER INHALATION SCH ×2 (07:59→19:04)
[2019-01-01] MEDS: IPRATROPIUM-ALBUTEROL 3 ML NEB INHALATION SCH ×4 (07:59→19:04)
--- NOTE | 2019-01-01 09:47 | P.PN ---
Progress Note - Text The patient is a 63-year-old female with a chronic severe persistent ALLERGIC asthma with an acute exacerbation not responding to outpatient treatments. Patient presently on IV corticosteroids along with her respiratory treatments. She has been evaluated by pulmonary medicine and please refer to their progress notes. The patient seems to be having intermittent episodes of increasing shortness of breath. Especially when she is up trying to ambulate. This morning as I walked into the room she was standing up and having heavy breathing. Prolonged expiratory phase. Audible wheezing. Baseline Vital signs show temperature 97.5 with a pulse of 87 and respirations 18. Blood pressure 125/69 and she is 98% saturated on 2 L. But as mentioned presently she is short of breath having prolonged expiratory phase. Lungs do reveal diffuse expiratory wheezing. And generally diminished breath sounds. Heart tones were regular. No unusual edema. No focal neurological changes. Apparently patient had testing for home oxygen and did not qualify Impressions and plans Because of her continued intermittent symptomatology at this time we'll hold discharge and continue present treatment and medications and will wait for further recommendations from pulmonary medicine. IV decreased from 100-[address] Luu on medical call for me over the weekend.
[2019-01-01] MEDS: clonazePAM 1 MG TAB PO PRN (23:16)
--- NOTE | 2019-01-01 23:21 | P.PN ---
Subjective Progress Note Date: 01/01/19 Principal diagnosis: Acute asthma exacerbation, steroid dependent chronic severe persistent asthma with acute exacerbation, generalized anxiety disorder, history of remote smoking with possible some baseline COPD, evaluate for ALLERGIC asthma 01/01/2019, patient seen florinda reexamined during the rounds clinically slightly improved has been having significant wheezing cough congestion but in the last 6 -8 hours respiratory status is slightly better wheezing has substantially improved she able to ambulate now she is planning for possible discharge in next 24 hours labs reviewed medications reviewed care plan discussed with the patient at length 12/31/2018, patient seen florinda examined during the rounds clinically slightly improved though by the head and acute episode of shortness of breath and wheezing post shower have clear audible wheezing has dry nonproductive cough denies any chest pain it appears that patient is not ready for discharge I have written the prescription for perform mist, Pulmicort, DuoNeb as needed and tapering steroids agree with discharge planning next 24 hours if remains stable in the meantime continue IV steroids and breathing treatments and follow clinical course closely 12/30/2018, patient seen florinda reexamined during the rounds clinically patient is slightly better with improved breathing however is still have ongoing intermittent wheezing, the hypersensitive pneumonitis panel is pending, IgE level was done noted very low appears to be severely suppressed likely related to IV steroids, patient would like to go home can benefit from performist which is long-acting better to agonist along with Pulmicort pending insurance approval 63-year-old female with a remote history of smoking she expresses that she has smoked half to one pack a day for few years than his stopped long time ago, patient has a history of chronic persistent asthma has seen a local hand alterations tailor in the past but now does not want to see that hand alterations tailor, patient feels that her asthma medications are not working in the last 2 weeks she's been more short of breath she has been treated with multiple courses of prednisone without any significant relief she does have some dry nonproductive cough denies any chest pain does get short of breath on minimal activity and exertion, I reviewed data revealed that patient had a low dose CT about a year ago and a small nodule has been noted which was stable and unchanged, patient has been on Advair 230/21 2 puffs 2 times a day at home also has a history of significant degree of anxiety disorder she has been using nebulizer treatment at home she feels that when she is on prednisone her respiratory status improved it appears that she has not been formally evaluated for biologic agent for chronic persistent severe ALLERGIC asthma, she denies any presence of birds or bird feeder in around the house, she does have a cat visit short hair does not shed 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 Q10H [facility] Rx#:[id number] Sodium Chloride 0.9% 1, 100 400 000 ml @ 50 mls/hr IV . Q20H [facility] Rx#:[id number] Other: Voiding Method Toilet Toilet Bedside Commode Bedside Commode # Voids 1 1 - Exam - Constitutional General appearance: average body habitus, cooperative, disheveled, mild distress - EENT Eyes: EOMI, PERRLA, poor dentition, normal appearance ENT: hearing grossly normal, normal oropharynx Ears: bilateral: normal - Neck Carotids: bilateral: upstroke normal, bruit absent Thyroid: bilateral: normal size - Respiratory Respiratory: bilateral: diminished, rhonchi, wheezing (Draining both inspiratory expiratory phases) - Cardiovascular Rhythm: regular Heart sounds: normal: S1, S2 - Gastrointestinal General gastrointestinal: decreased bowel sounds, distended, soft - Neurologic Neurologic: CNII-XII intact - Musculoskeletal Musculoskeletal: gait normal, generalized weakness, strength equal bilaterally - Psychiatric Psychiatric: A&O x's 3, appropriate affect, intact judgment & insight - Labs CBC & Chem 7: 12/29/18 08:34 12/29/18 08:34 Assessment and Plan Assessment: Acute asthma exacerbation likely Baseline chronic persistent severe asthma Suspect presence of ALLERGIC asthma History of remote smoking and nicotine use possible Baseline COPD cannot be excluded Generalized anxiety disorder Plan: Continue bronchodilator IV steroids, can be switched to oral bronchodilators at the time of discharge, prescription provided Continuation of home medications Prescription also provided for a Perforomist and Pulmicort Awaiting reports for the labs of ALLERGIC asthma Patient to be evaluated further outpatient setting with pulmonary function testing and for biologic agents for chronic persistent severe ALLERGIC asthma Time with Patient: Greater than 30
[2019-01-02] MEDS: HYDROcodone/APAP 7.5-325MG 1 EACH TAB PO PRN (04:15)
[2019-01-02] MEDS: LORazepam 2 MG/ML INJ IV PRN (04:18)
[2019-01-02] MEDS: IPRATROPIUM-ALBUTEROL 3 ML NEB INHALATION PRN (05:00)
[2019-01-02] MEDS: methylPREDNISolone SOD SUCCI 125 MG/2 ML VIAL IV SCH (05:52)
[2019-01-02 06:04] VITALS: BP 158/74; RESP 17; TEMP 97.4
[2019-01-02] MEDS: FAMOTIDINE 20 MG TAB PO SCH (07:47)
[2019-01-02] MEDS: PARoxetine 10 MG TAB PO SCH (07:47)
[2019-01-02] MEDS: SYMBICORT 160-4.5 MCG INHALER INHALATION SCH (08:22)
[2019-01-02] MEDS: IPRATROPIUM-ALBUTEROL 3 ML NEB INHALATION SCH ×2 (08:22→10:56)
--- NOTE | 2019-01-02 10:20 | P.DS ---
Providers Date of admission: 12/27/18 18:52 Attending physician: Michael Clarke Consults: 12/27/18 21:19 Consult Physician Routine Consulting Provider: Cliff Ruiz Consult Reason/Comments: COPD exacerbation, asthma Do you want consulting provider notified?: Yes, Notify in am Primary care physician: Michael Clarke The patient is a 63-year-old female with chronic severe persistent ALLERGIC asthma with an acute exacerbation who did not respond to outpatient regimens with antibiotics and corticosteroids 2. Patient required admission and consultation with pulmonary medicine and please refer to Dr. Ruiz's consultation and progress notes. Labs have been sent for workup for recurrent ALLERGIC asthma and most results are pending. Initial laboratory work revealed a white count of 8.3 and this increased to 13.1 while on IV corticosteroids. Hemoglobin was stable at 12-13. Mild increase of MCV to 103. Platelet counts around 200,000. Coagulation studies unremarkable. Mildly low sodium at 136 with a mildly elevated potassium of 5.2. BUN of 25 with creatinine of 1.21 given her a GFR initially of 48 but did increase to GFR of 68 with hydration. Her blood sugar remained around 100. Initial liver enzymes were slightly elevated with an AST of 73 and an ALT of 96. Both decreased on repeat testing. Albumin was 3.8. IgE was 4.83 but likely secondary to recent prednisone usage. Chest x-ray revealed no acute process and no significant change from earlier in the year. EKG demonstrated a normal sinus rhythm. No ischemic changes. Exam today reveals her to be sitting up at side of the bed. No acute distress. Vital signs are stable with a normal temperature. Respirations are unlabored. Rate of 17. Pulse of 96. Blood pressure 158/74 and she is 98% saturated on room air. Lungs were generally clear with very minimal end expiratory wheeze. Heart tones were regular. She is alert and oriented without any focal neurological changes. Hospital course Patient did clear with respiratory treatments and corticosteroids. Testing to see if she qualified for home oxygen use did not support home oxygen therapy. Labs have been sent for further ALLERGIC testing and they are pending at this dictation. Patient slowly improved with treatment although did have several intermittent exacerbations. But at this time she has remained stable and plans are for discharge to home. Home medications She has been ordered a prednisone taper and DuoNeb treatments per Dr. Ruiz. She is to continue her home medications that include Advair 230-21 g inhaler 2 puffs twice a day Klonopin 1 mg 3 times a day Paxil 10 mg daily In Coyote 7.5-325 one 4 times a day as needed for chronic pain. Patient obtains through the office and is monitored for usage. Discharge diagnoses 1. Persistent severe ALLERGIC asthma with acute exacerbation that did not respond to outpatient treatment. 2. Acute on chronic stage III renal failure secondary to prerenal azotemia related to underlying exacerbation of COPD and dehydration. Resolved with hydration therapy. 3. Tobacco usage history. Post low-dose computed tomography scan in 2017. 4. Chronic lumbar pain secondary to osteoarthritis, chronic pain syndrome. 5. Previous surgeries that include hysterectomy, lap band surgery, right knee replacement, carpal tunnel and tonsillectomy in the past Diet as tolerated. Decrease in activity level pending further improvement in pulmonary status. Follow-up with myself this coming week in the office and follow-up with Dr. Ruiz , systems testing laboratory technician 1 week. She will call to set up. Patient Condition at Discharge: Fair Plan - Discharge Summary Discharge Rx Participant: Yes New Discharge Prescriptions: No Action clonazePAM [KlonoPIN] 1 mg PO TID PRN PRN Reason: Anxiety HYDROcodone/APAP 7.5-325MG [Coyote 7.5-325] 1 tab PO QID PRN PRN Reason: Pain Ipratropium-Albuterol Nebulize [Duoneb 0.5 mg-3 mg/3 ml Soln] 3 ml INHALATION RT-QID PRN PRN Reason: Shortness Of Breath PARoxetine [Paxil] 10 mg PO DAILY Fluticasone/Salmeterol [Advair Hfa 230-21 Mcg Inhaler] 2 puff INHALATION RT- BID Discharge Medication List HYDROcodone/APAP 7.5-325MG [Coyote 7.5-325] 1 tab PO QID PRN 11/14/17 [History] Ipratropium-Albuterol Nebulize [Duoneb 0.5 mg-3 mg/3 ml Soln] 3 ml INHALATION RT -QID PRN 11/14/17 [History] clonazePAM [KlonoPIN] 1 mg PO TID PRN 11/14/17 [History] Fluticasone/Salmeterol [Advair Hfa 230-21 Mcg Inhaler] 2 puff INHALATION RT-BID 12/27/18 [History] PARoxetine [Paxil] 10 mg PO DAILY 12/27/18 [History] Follow up Appointment(s)/Referral(s): Michael Clarke MD [Primary Care Provider] - 1-2 days Cliff Ruiz MD [STAFF PHYSICIAN] - 1 Week
[2019-01-02 11:09] VITALS: PULSE 91
[2019-01-04 01:35] LABS: Alternaria Alternata IgG <2.0 mcg/mL (< 13.6); Aspergillus fumigatus IgG Not detected (Not detected); Aureobasidium pullulans IgG <2.0 mcg/mL (< 13.6); Cladosporium herbarium IgG 6.8 mcg/mL (< 14.7); Phoma ssp. IgG 2.7 mcg/mL (< 6.6); Saccaharomospora viridis Not detected (Not detected); Saccaharopoly. rectivirgula Not detected (Not detected)
== END 2019-01-02 11:20 | disposition home or self-care (01) | DRG 202 ==
LOC: EC 13:30 → 3NMEDONC 18:52
PROVIDERS: ADMIT Internal Medicine; ATTEND Internal Medicine
DX: J45.51 Severe persistent asthma with (acute) exacerbation (principal); J44.1 Chronic obstructive pulmonary disease with (acute) exacerbation; N17.9 Acute kidney failure, unspecified; N18.3 Chronic kidney disease, stage 3 (moderate); E86.0 Dehydration; M47.816 Spondylosis without myelopathy or radiculopathy, lumbar region; G89.4 Chronic pain syndrome; F41.1 Generalized anxiety disorder; F32.9 Major depressive disorder, single episode, unspecified; Z79.51 Long term (current) use of inhaled steroids; Z79.899 Other long term (current) drug therapy; Z90.710 Acquired absence of both cervix and uterus; Z87.891 Personal history of nicotine dependence; Z86.14 Personal history of Methicillin resistant Staphylococcus aureus infection; Z98.84 Bariatric surgery status; Z96.651 Presence of right artificial knee joint; Z88.6 Allergy status to analgesic agent; Z88.5 Allergy status to narcotic agent; Z88.0 Allergy status to penicillin; Z91.040 Latex allergy status; Z83.3 Family history of diabetes mellitus
CPT/HCPCS: 36415; 71045; 80053; 82550; 82553; 82785; 83735; 83880; 84484; 85025; 85610; 85730; 86001; 86606; 86609; 93005; 94640; 94760; 96374; 99285

== ENCOUNTER → 2019-12-19 | Outpatient (CLI) | payer MEDICARE ==
--- NOTE | 2019-12-19 16:59 | BD ---
EXAMINATION TYPE: Axial Bone Density DATE OF EXAM: 12/19/2019 COMPARISON: NONE CLINICAL HISTORY: 64-year-old female postmenopausal screening without HRT Height: 5 FT 5 1/2 IN Weight: 152 FRAX RISK QUESTIONS: Alcohol (3 or more units per day): NO Family History (Parent hip fracture): NO Glucocorticoids (More than 3mos): YES (Ex: prednisone, prednisolone, methylprednisolone, dexamethasone, and hydrocortisone). History of Fracture in Adulthood: NO Secondary Osteoporosis: 1. Type 1 Diabetes: NO 2. Hyperthyroidism: NO 3. Menopause before 45: YES 4. Malnutrition: NO 5. Chronic liver disease: NO Rheumatoid Arthritis: YES Current Tobacco Use: YES RISK FACTORS HISTORY OF: Surgery to Spine/Hip(right/left)/Wrist (right/left): CARPAL TUNNEL JAMAR WRISTS, APPROX 15 YEARS AGO Active: YES Postmenopausal woman: [facility] AGE 41 SYMPTOMS SOON AFTER Lost more than 2 inches in height since high school: YES MEDICATIONS: Prednisone or other steroids: PREDNISONE How Lon MONTHS Additional Medications: PREDNISONE, HYDROCODONE,SINGULAIR, BREATHING TREATMENTS , INHALERS, Additional History: COPD , ASTHMA EXAM MEASUREMENTS: Bone mineral densitometry was performed using the [employer]. Bone mineral density as measured about the Lumbar spine is: ----- L1-L4(G/cm2): 1.111 T Score Values are as follows: ----- L2: -1.2 ----- L3: -0.4 ----- L4: 0.1 ----- L1-L4: -0.6 BASELINE Bone mineral density about the R hip (g/cm2): 0.732 Bone mineral density about the L hip (g/cm2): 0.717 T Score values are as follows: -----R Neck: -2.2 -----L Neck: -2.3 -----R Total: -2.1 -----L Total: -2.3 BASELINE IMPRESSION: Osteopenia (T Score between -2.5 and -1). There is slightly increased risk of fracture and the patient may be considered for treatment. Re-Screen 2-5 years. NOTE: T-SCORE=SD OF THE YOUNG ADULT MEAN.
--- NOTE | 2019-12-21 09:27 | MM ---
Reason for exam: screening (asymptomatic). Last mammogram was performed 1 year and 3 months ago. History: Family history of breast cancer in brother at age 13 and breast cancer in grandmother. Physical Findings: A clinical breast exam by your physician is recommended on an annual basis and results should be correlated with mammographic findings. MG 3D Screening Mammo W/Cad Bilateral CC and MLO view(s) were taken. Prior study comparison: September 06, 2018, mammogram, performed at [facility]. June 24, 2017, mammogram, performed at [facility]. There are scattered fibroglandular densities. No significant changes when compared with prior studies. ASSESSMENT: Negative, BI-RAD 1 RECOMMENDATION: Routine screening mammogram of both breasts in 1 year.
== END | disposition home or self-care (01) ==
LOC: RADMAMWWP 15:12
PROVIDERS: ATTEND Family Medicine
DX: Z12.31 Encounter for screening mammogram for malignant neoplasm of breast (principal); M85.80 Other specified disorders of bone density and structure, unspecified site; Z78.0 Asymptomatic menopausal state
CPT/HCPCS: 77063; 77067; 77080

== ENCOUNTER 2020-12-10 14:15 | Emergency (ER) | payer MEDICARE ==
[2020-12-10 14:21] VITALS: TEMP 98.2
[2020-12-10] MEDS ORDERED: ALBUTEROL NEBULIZED 2.5 MG/3 ML INHALATION STA (14:31)
[2020-12-10] MEDS ORDERED: SODIUM CHLORIDE 0.9% 1,000 ML IV STA (14:31)
--- NOTE | 2020-12-10 14:46 | ED ---
SOB HPI - General Chief Complaint: Shortness of Breath Stated Complaint: SOB Time Seen by Provider: 12/10/20 14:22 Source: patient, RN notes reviewed Mode of arrival: wheelchair Limitations: no limitations - History of Present Illness Initial Comments: Patient is a 65-year-old female complaining of increased shortness of breath. She noted that several months ago she was diagnosed with a "lung infection" and given antibiotics. She stated that she took antibiotics for course. But today she was sent to get an x-ray by her primary care of her chest. She then noted after the x-ray she was having increased shortness of breath she decided to come to the emergency department to get further evaluated. She noted that she gets short of breath on a few steps of physical exertion. She did note that she has a history of COPD. She also took 3 steroid tablets this morning that were prescribed to her for on evaluation and she takes her inhalers daily as prescribed. She denied any chest pain diaphoresis headache nausea vomiting diarrhea constipation fever fatigue chills. - Related Data Home Medications Medication Instructions Recorded Confirmed HYDROcodone/APAP 7.5-325MG [[place] 1 tab PO QID 11/14/17 12/10/20 7.5-325] Ipratropium-Albuterol Nebulize 3 ml INHALATION RT-QID PRN 11/14/17 12/10/20 [Duoneb 0.5 mg-3 mg/3 ml Soln] Cholecalciferol [Vitamin D3 (25 25 mcg PO DAILY 12/10/20 12/10/20 Mcg = 1000 Iu)] Cyanocobalamin (Vitamin B-12) 1,000 mcg PO DAILY 12/10/20 12/10/20 [Vitamin B-12] Fluticasone Nasal [place] [Flonase 1 spray EA NOSTRIL DAILY 12/10/20 12/10/20 Nasal [place]] Fluticasone Propionate [Flovent 1 puff INHALATION RT-BID 12/10/20 12/10/20 Hfa 110 mcg] Montelukast [Singulair] 10 mg PO DAILY 12/10/20 12/10/20 Terbinafine [LamISIL] 250 mg PO DAILY 12/10/20 12/10/20 Triamcinolone 0.1% Cream [Kenalog 1 applicatio TOPICAL BID PRN 12/10/20 12/10/20 0.1% Cream] predniSONE [Deltasone] 60 mg PO DAILY 12/10/20 12/10/20 Previous Rx's Medication Instructions Recorded Moxifloxacin HCl 400 mg PO DAILY 10 Days #10 tab 12/10/20 Allergies Allergy/AdvReac Type Severity Reaction Status Date / Time codeine Allergy Rash/Hives Verified 12/10/20 16:04 [From Tylenol-Codeine #3] latex Allergy Rash/Hives Verified 12/10/20 16:04 Penicillins Allergy Unknown Verified 12/10/20 16:04 Review of Systems ROS Statement: Those systems with pertinent positive or pertinent negative responses have been documented in the HPI. ROS Other: All systems not noted in ROS Statement are negative. Past Medical History Past Medical History: Asthma, COPD, Osteoarthritis (OA) Additional Past Medical History / Comment(s): back pain, heart murmur, MRSA of the hand 2014 History of Any Multi-Drug Resistant Organisms: MRSA Date of last positivie culture/infection: 2014 MDRO Source:: Hand Past Surgical History: Hysterectomy, Joint Replacement, Orthopedic Surgery, Ton sillectomy Additional Past Surgical History / Comment(s): lap band surgery,right knee, carpal tunnel, cysts from feet Past Psychological History: Anxiety, Depression Smoking Status: Never smoker Past Alcohol Use History: None Reported Past Drug Use History: None Reported General Exam Limitations: no limitations General appearance: alert, in no apparent distress Head exam: Present: atraumatic, normocephalic, normal inspection Eye exam: Present: normal appearance, PERRL, EOMI. Absent: scleral icterus, conjunctival injection, periorbital swelling ENT exam: Present: normal exam, mucous membranes moist Neck exam: Present: normal inspection. Absent: tenderness, meningismus, lymphadenopathy Respiratory exam: Present: normal lung sounds bilaterally, wheezes (In all right lung lora.). Absent: respiratory distress, rales, rhonchi, stridor Cardiovascular Exam: Present: regular rate, normal rhythm, normal heart sounds. Absent: systolic murmur, diastolic murmur, rubs, gallop, clicks GI/Abdominal exam: Present: soft, normal bowel sounds. Absent: distended, tenderness, guarding, rebound, rigid Extremities exam: Present: normal inspection, full ROM, normal capillary refill. Absent: tenderness, pedal edema, joint swelling, calf tenderness Back exam: Present: normal inspection Neurological exam: Present: alert, oriented X3, CN II-XII intact Psychiatric exam: Present: normal affect, normal mood Skin exam: Present: warm, dry, intact, normal color. Absent: rash Course Vital Signs 12/10/20 12/10/20 12/10/20 14:18 14:34 14:59 Temperature 98.2 F Pulse Rate 88 77 Respiratory 20 20 Rate Blood Pressure 125/85 O2 Sat by Pulse 94 L Oximetry 12/10/20 12/10/20 12/10/20 15:16 15:20 16:00 Temperature Pulse Rate 78 78 75 Respiratory 18 18 Rate Blood Pressure 127/75 128/66 O2 Sat by Pulse 95 98 Oximetry Medical Decision Making - Medical Decision Making 65-year-old female complaining of shortness of breath, status post post- pneumonia come on back. Labs ordered: White blood cells 14.5, rest of labs unremarkable. patient had a chest x-ray 20 minutes before coming to the emergency room. EKG ordered and interpreted. covid negative Case discussed with Dr. Buchanan, decided the patient could discharge home and follow-up with primary care. - Lab Data Result diagrams: 12/10/20 14:46 12/10/20 14:46 Lab Results 12/10/20 12/10/20 12/10/20 Range/Units 14:46 14:46 14:46 WBC 14.5 H (3.8-10.6) k/uL RBC 4.62 (3.80-5.40) m/uL Hgb 14.2 (11.4-16.0) gm/dL Hct 44.4 (34.0-46.0) % MCV 96.3 (80.0-100.0) fL MCH 30.7 (25.0-35.0) pg MCHC 31.9 (31.0-37.0) g/dL RDW 14.2 (11.5-15.5) % Plt Count 366 (150-450) k/uL MPV 7.0 Neutrophils % 94 % Lymphocytes % 2 % Monocytes % 3 % Eosinophils % 0 % Basophils % 0 % Neutrophils # 13.6 H (1.3-7.7) k/uL Lymphocytes # 0.3 L (1.0-4.8) k/uL Monocytes # 0.5 (0-1.0) k/uL Eosinophils # 0.0 (0-0.7) k/uL Basophils # 0.0 (0-0.2) k/uL PT (9.0-12.0) sec INR (<1.2) APTT (22.0-30.0) sec D-Dimer (<0.60) mg/L FEU Sodium 135 L (137-145) mmol/L Potassium 5.0 (3.5-5.1) mmol/L Chloride 101 (98-107) mmol/L Carbon Dioxide 23 (22-30) mmol/L Anion Gap 11 mmol/L BUN 30 H (7-17) mg/dL Creatinine 1.05 H (0.52-1.04) mg/dL Est GFR (CKD-EPI)AfAm 64 (>60 ml/min/1.73 sqM) Est GFR (CKD-EPI)NonAf 55 (>60 ml/min/1.73 sqM) Glucose 111 H (74-99) mg/dL Plasma Lactic Acid Trav 1.6 (0.7-2.0) mmol/L Calcium 9.8 (8.4-10.2) mg/dL Magnesium 2.1 (1.6-2.3) mg/dL Total Bilirubin 0.5 (0.2-1.3) mg/dL AST 31 (14-36) U/L ALT 55 H (4-34) U/L Alkaline Phosphatase 148 H (38-126) U/L Troponin I (0.000-0.034) ng/mL NT-Pro-B Natriuret Pep pg/mL Total Protein 6.4 (6.3-8.2) g/dL Albumin 3.6 (3.5-5.0) g/dL Coronavirus (PCR) (Not Detectd) 12/10/20 12/10/20 12/10/20 Range/Units 14:46 14:50 14:50 WBC (3.8-10.6) k/uL RBC (3.80-5.40) m/uL Hgb (11.4-16.0) gm/dL Hct (34.0-46.0) % MCV (80.0-100.0) fL MCH (25.0-35.0) pg MCHC (31.0-37.0) g/dL RDW (11.5-15.5) % Plt Count (150-450) k/uL MPV Neutrophils % % Lymphocytes % % Monocytes % % Eosinophils % % Basophils % % Neutrophils # (1.3-7.7) k/uL Lymphocytes # (1.0-4.8) k/uL Monocytes # (0-1.0) k/uL Eosinophils # (0-0.7) k/uL Basophils # (0-0.2) k/uL PT 10.1 (9.0-12.0) sec INR 0.9 (<1.2) APTT 20.9 L (22.0-30.0) sec D-Dimer 3.66 H (<0.60) mg/L FEU Sodium (137-145) mmol/L Potassium (3.5-5.1) mmol/L Chloride (98-107) mmol/L Carbon Dioxide (22-30) mmol/L Anion Gap mmol/L BUN (7-17) mg/dL Creatinine (0.52-1.04) mg/dL Est GFR (CKD-EPI)AfAm (>60 ml/min/1.73 sqM) Est GFR (CKD-EPI)NonAf (>60 ml/min/1.73 sqM) Glucose (74-99) mg/dL Plasma Lactic Acid Trav (0.7-2.0) mmol/L Calcium (8.4-10.2) mg/dL Magnesium (1.6-2.3) mg/dL Total Bilirubin (0.2-1.3) mg/dL AST (14-36) U/L ALT (4-34) U/L Alkaline Phosphatase (38-126) U/L Troponin I <0.012 (0.000-0.034) ng/mL NT-Pro-B Natriuret Pep 147 pg/mL Total Protein (6.3-8.2) g/dL Albumin (3.5-5.0) g/dL Coronavirus (PCR) (Not Detectd) 12/10/20 Range/Units 15:40 WBC (3.8-10.6) k/uL RBC (3.80-5.40) m/uL Hgb (11.4-16.0) gm/dL Hct (34.0-46.0) % MCV (80.0-100.0) fL MCH (25.0-35.0) pg MCHC (31.0-37.0) g/dL RDW (11.5-15.5) % Plt Count (150-450) k/uL MPV Neutrophils % % Lymphocytes % % Monocytes % % Eosinophils % % Basophils % % Neutrophils # (1.3-7.7) k/uL Lymphocytes # (1.0-4.8) k/uL Monocytes # (0-1.0) k/uL Eosinophils # (0-0.7) k/uL Basophils # (0-0.2) k/uL PT (9.0-12.0) sec INR (<1.2) APTT (22.0-30.0) sec D-Dimer (<0.60) mg/L FEU Sodium (137-145) mmol/L Potassium (3.5-5.1) mmol/L Chloride (98-107) mmol/L Carbon Dioxide (22-30) mmol/L Anion Gap mmol/L BUN (7-17) mg/dL Creatinine (0.52-1.04) mg/dL Est GFR (CKD-EPI)AfAm (>60 ml/min/1.73 sqM) Est GFR (CKD-EPI)NonAf (>60 ml/min/1.73 sqM) Glucose (74-99) mg/dL Plasma Lactic Acid Trav (0.7-2.0) mmol/L Calcium (8.4-10.2) mg/dL Magnesium (1.6-2.3) mg/dL Total Bilirubin (0.2-1.3) mg/dL AST (14-36) U/L ALT (4-34) U/L Alkaline Phosphatase (38-126) U/L Troponin I (0.000-0.034) ng/mL NT-Pro-B Natriuret Pep pg/mL Total Protein (6.3-8.2) g/dL Albumin (3.5-5.0) g/dL Coronavirus (PCR) Not Detected (Not Detectd) - EKG Data -: EKG Interpreted by Co EKG shows normal: sinus rhythm Rate: normal EKG Comments: Ventricular rate 75 bpm, IL interval 120 ms, QRS duration 70 ms, QT/QTC 342/71 ms, heareT axes 72/60/71. Normal sinus rhythm with sinus arrhythmia, normal ECG. - Radiology Data Radiology results: report reviewed, image reviewed Patient had x-ray done about 30 minutes ago and facility, after was taken she decided come to the emergency room due to increased shortness of breath. Blunting left may reflect underlying pleural effusion. CT: No evidence of pulmonary embolus. Disposition Clinical Impression: Acute exacerbation of chronic obstructive airways disease Disposition: HOME SELF-CARE Instructions (If sedation given, give patient instructions): COPD (Chronic Obstructive Pulmonary Disease) (ED) Additional Instructions: Please return to the Emergency Department if symptoms worsen or any other concerns. Follow-up with primary care 1-2 days take antibiotics as prescribed. Steroids were not prescribed at this point due to adverse reaction with anabiotic. Is patient prescribed a controlled substance at d/c from ED?: No Referrals: Felicia Nguyen MD [Primary Care Provider] - 1-2 days Time of Disposition: 17:37
[2020-12-10 15:04] LABS: Basophils % (A) 0 %; Eosinophils % (A) 0 %; HCT 44.4 % (34.0-46.0); HGB 14.2 gm/dL (11.4-16.0); Lymphocytes # (A) 0.3 k/uL (1.0-4.8); Lymphocytes % (A) 2 %; MCH 30.7 pg (25.0-35.0); MCHC 31.9 g/dL (31.0-37.0); MCV 96.3 fL (80.0-100.0); Monocytes # (A) 0.5 k/uL (0-1.0); Monocytes % (A) 3 %; Neutrophils # (A) 13.6 k/uL (1.3-7.7); Neutrophils % (A) 94 %; Platelet Count 366 k/uL (150-450); RBC 4.62 m/uL (3.80-5.40); RDW 14.2 % (11.5-15.5); WBC 14.5 k/uL (3.8-10.6)
[2020-12-10 15:14] LABS: Albumin 3.6 g/dL (3.5-5.0); Calcium 9.8 mg/dL (8.4-10.2); Magnesium 2.1 mg/dL (1.6-2.3); Total Bilirubin 0.5 mg/dL (0.2-1.3); Total Protein 6.4 g/dL (6.3-8.2)
[2020-12-10] MEDS ORDERED: LORazepam 2 MG/ML INJ IV STA (15:17)
[2020-12-10 15:31] VITALS: RESP 18
[2020-12-10 15:31] LABS: INR 0.9 (<1.2); Partial Thromboplastin Time 20.9 sec (22.0-30.0); Prothrombin Time 10.1 sec (9.0-12.0)
[2020-12-10 15:43] LABS: D-Dimer 3.66 mg/L FEU (<0.60)
--- NOTE | 2020-12-10 16:29 | CT ---
EXAMINATION TYPE: CT chest angio for PE DATE OF EXAM: 12/10/2020 COMPARISON: None HISTORY: difficulty breathing on exertion CT DLP: 296.6 mGycm CONTRAST: CT chest with contrast and 3D reconstruction with MIP imaging is performed with IV Contrast, patient injected with 100 mL of Isovue 370. Contrast-enhanced CT of the chest was performed through the course of the pulmonary arteries with charlene g and mediastinal window settings submitted. 3D reconstruction with MIP imaging was also performed. PULMONARY ARTERIES: The pulmonary arteries and their major tributaries are patent. I do not see nya dence for sizable filling defect to suggest pulmonary embolic process. LUNGS: The lungs are clear and free of infiltrate. No evidence for atelectasis. No pulmonary nodule or mass is detected. No pleural effusion. Coarse interstitial markings noted which appear to be ch ronic in nature. MEDIASTINUM: Thoracic aorta is of normal caliber,however, evaluation is limited given timing of the contrast bolus. If there is concern for thoracic aortic pathology consider EMIGDIO. Correlate clinicall y . The heart is not enlarged. No evidence for mediastinal mass. No mediastinal lymph nodes greater than 1cm. HILAR STRUCTURES: No evidence for mass. No hilar lymph nodes greater than 1 cm. UPPER ABDOMEN: No significant abnormality is seen. IMPRESSION: 1. No evidence for Pulmonary embolism at this time.
[2020-12-10 17:53] VITALS: BP 128/59; PULSE 73
== END 2020-12-10 17:50 | disposition home or self-care (01) ==
LOC: EC 14:15
DX: J44.1 Chronic obstructive pulmonary disease with (acute) exacerbation (principal); Z79.51 Long term (current) use of inhaled steroids; Z88.0 Allergy status to penicillin; Z88.5 Allergy status to narcotic agent; Z91.040 Latex allergy status; Z88.6 Allergy status to analgesic agent
CPT/HCPCS: 99285 ×2; 96374 ×2; 96361 ×2; 36415; 94640; 93005; 85379; 83880; 80053; 83605; 83735; 84484; 85025; 85610; 85730; 87635; 71046; 71275; J2060; Q9967

== ENCOUNTER → 2020-12-10 | Outpatient (CLI) | payer MEDICARE ==
--- NOTE | 2020-12-10 14:16 | XR ---
EXAMINATION TYPE: XR chest 2V DATE OF EXAM: 12/10/2020 COMPARISON: 12/27/2018 HISTORY: Shortness of breath TECHNIQUE: Frontal and lateral views of the chest are obtained. FINDINGS: Scattered senescent parenchymal changes noted. Hyperinflation compatible with COPD. No evidence for infiltrate. No evidence for atelectasis. Blunting left may reflect underlying pleural effusion. Heart size is stable. Mediastinal structures are stable and grossly unremarkable. No evidence for hilar prominence. Degenerative changes dorsal spine. IMPRESSION: 1. Blunting left may reflect underlying pleural effusion.
== END | disposition home or self-care (01) ==
LOC: RADXRMAIN 13:53
PROVIDERS: ATTEND Family Medicine
DX: R91.8 Other nonspecific abnormal finding of lung field (principal); J44.9 Chronic obstructive pulmonary disease, unspecified
CPT/HCPCS: 71046

== ENCOUNTER → 2020-12-26 | Outpatient (CLI) | payer MEDICARE | END | disposition home or self-care (01) | LOC: LABWHC1 12:38 | PROVIDERS: ATTEND Internal Medicine Critical Care Medicine | DX: Z20.822 Contact with and (suspected) exposure to COVID-19 (principal) | CPT/HCPCS: 36415; 86769 ==

== ENCOUNTER 2022-04-15 09:44 | Emergency (ER) | payer MEDICARE ==
[2022-04-15 09:52] VITALS: RESP 18
[2022-04-15] MEDS ORDERED: KETOROLAC 15 MG/ML 1 ML VIAL IM STA (10:03)
--- NOTE | 2022-04-15 10:56 | XR ---
Right hip, right femur, lumbosacral spine HISTORY: Trauma and pain Frontal lateral views of the right femur on 4 images, 2 views the right hip, 5 views lumbosacral spin e submitted, correlation to pelvis 11/14/[address] 11/14/2017 Osteoarthritic changes noted in the right hip, there is marginal spurring, some concentric joint spac e loss. Bone mineralization, alignment are maintained. Patient shows right knee arthroplasty change. No fracture or dislocation of the right femur. Lumbosacral spine shows scoliotic curvature, S-shaped. Lap band is noted incidentally. There is multi level spondylosis. No evident spondylolysis or spondylolisthesis. Lumbar vertebral bodies show preser layo height. Loss of disc height is present at intervertebral levels, there is multilevel vacuum disc phenomenon. Sclerosis is present in the posterior elements of the lower lumbar spine. IMPRESSION: Degenerative disc disease and scoliosis, facet arthropathy within the lumbar spine. No fr acture or subluxation, no fracture or dislocation involving the right femur or right hip. Osteoarthri tis right hip.
--- NOTE | 2022-04-15 11:07 | ED ---
Lower Extremity Injury HPI - General Chief Complaint: Extremity Injury, Lower Stated Complaint: Fall/Rt hip pain Time Seen by Provider: 04/15/22 09:57 Source: patient, RN notes reviewed Mode of arrival: wheelchair Limitations: no limitations - History of Present Illness Initial Comments: This is a 67-year-old female who presents emergency department for pain after a fall. Patient states that a week ago, when she was getting into a car, she caught her leg and fell. She fell backwards landing on the lower back and right hip. Denies hitting her head or any loss of consciousness. Since the injury, she continues to have pain in the right lower back, the right buttocks, and the right upper thigh. She does take daily [place] for chronic back pain. States that she is on a pain contract. Other than the [place], she has not taken anything for the pain. She has been alternating with ice and heat. Denies any fevers, chills, sore throat, cough, dyspnea, chest pain, palpitations, abdominal pain, nausea, vomiting, diarrhea, or headaches. MD Complaint: hip injury, fall Onset/Timin -: week(s) Injury: Hip: Right - Related Data Home Medications Medication Instructions Recorded Confirmed HYDROcodone/APAP 7.5-325MG [[place] 1 tab PO QID 11/14/17 12/10/20 7.5-325] Ipratropium-Albuterol Nebulize 3 ml INHALATION RT-QID PRN 11/14/17 12/10/20 [Duoneb 0.5 mg-3 mg/3 ml Soln] Cholecalciferol [Vitamin D3 (25 25 mcg PO DAILY 12/10/20 12/10/20 Mcg = 1000 Iu)] Cyanocobalamin (Vitamin B-12) 1,000 mcg PO DAILY 12/10/20 12/10/20 [Vitamin B-12] Fluticasone Nasal [place] [Flonase 1 spray EA NOSTRIL DAILY 12/10/20 12/10/20 Nasal [place]] Fluticasone Propionate [Flovent 1 puff INHALATION RT-BID 12/10/20 12/10/20 Hfa 110 mcg] Montelukast [Singulair] 10 mg PO DAILY 12/10/20 12/10/20 Terbinafine [LamISIL] 250 mg PO DAILY 12/10/20 12/10/20 Triamcinolone 0.1% Cream [Kenalog 1 applicatio TOPICAL BID PRN 12/10/20 12/10/20 0.1% Cream] predniSONE [Deltasone] 60 mg PO DAILY 12/10/20 12/10/20 Previous Rx's Medication Instructions Recorded Moxifloxacin HCl [Avelox] 400 mg PO DAILY 10 Days #10 tab 12/10/20 Diclofenac Sodium [Voltaren] 75 mg PO BID PRN #30 tab 04/15/22 Metaxalone [Skelaxin] 400 mg PO QID PRN #30 tablet 04/15/22 Allergies Allergy/AdvReac Type Severity Reaction Status Date / Time codeine Allergy Rash/Hives Verified 04/15/22 09:52 [From Tylenol-Codeine #3] latex Allergy Rash/Hives Verified 04/15/22 09:52 Penicillins Allergy Unknown Verified 04/15/22 09:52 Review of Systems ROS Statement: Those systems with pertinent positive or pertinent negative responses have been documented in the HPI. ROS Other: All systems not noted in ROS Statement are negative. Past Medical History Past Medical History: Asthma, COPD, Osteoarthritis (OA) Additional Past Medical History / Comment(s): back pain, heart murmur, MRSA of the hand 2014 History of Any Multi-Drug Resistant Organisms: MRSA Date of last positivie culture/infection: 2014 MDRO Source:: Hand Past Surgical History: Hysterectomy, Joint Replacement, Orthopedic Surgery, To nsillectomy Additional Past Surgical History / Comment(s): lap band surgery,right knee, carpal tunnel, cysts from feet Past Psychological History: Anxiety, Depression Smoking Status: Never smoker Past Alcohol Use History: None Reported Past Drug Use History: None Reported General Exam Limitations: no limitations General appearance: alert, in distress Head exam: Present: atraumatic, normocephalic, normal inspection Respiratory exam: Present: normal lung sounds bilaterally. Absent: respiratory distress, wheezes, rales, rhonchi, stridor Cardiovascular Exam: Present: regular rate, normal rhythm, normal heart sounds. Absent: systolic murmur, diastolic murmur, rubs, gallop, clicks Right Hip exam: Present: normal inspection, full ROM. Absent: tenderness, swelling Upper Leg exam: Present: normal inspection, full ROM. Absent: tenderness, swelling Knee exam: Present: normal inspection, full ROM. Absent: tenderness, swelling Back exam: Present: normal inspection. Absent: full ROM (secondary to pain), tenderness Neurological exam: Present: alert, oriented X3, CN II-XII intact Psychiatric exam: Present: normal affect, normal mood Skin exam: Present: warm, dry, intact, normal color. Absent: rash Course Vital Signs 04/15/22 04/15/22 09:50 11:41 Temperature 97.5 F L 97.8 F Pulse Rate 65 74 Respiratory 18 18 Rate Blood Pressure 111/53 111/78 O2 Sat by Pulse 99 98 Oximetry Medical Decision Making - Medical Decision Making This is a 67-year-old female who presents to the emergency department for pain after a fall. She has no tenderness to palpation, but is in pain when trying to move or ambulate. X-rays revealed no acute abnormalities. She was given IM Toradol in the emergency department with little relief. Advised that the injuries should continue to improve on their own. Rx for Skelaxin and diclofenac sent to the pharmacy. She can take these with the [place] she already takes. If she does not like the diclofenac, she can take an alternative antiinflammatory such as Ibuprofen. Advised that the Skelaxin may cause her to be sleepy/groggy and she should take the first dose at night until she knows how it affects her. Return precautions reviewed in depth, the patient is instructed to return to the emergency department with any new, worsening, or concerning symptoms. Patient verbalized understanding. This case was discussed in detail with the attending ED physician. Presentation, findings, and treatment plan discussed in detail as well. - Radiology Data Radiology results: report reviewed, image reviewed Disposition Clinical Impression: Muscle strain of right lower extremity Disposition: HOME SELF-CARE Instructions (If sedation given, give patient instructions): Muscle Strain (ED), Lower Back Exercises (ED) Additional Instructions: Return to the emergency department with any new, worsening, or concerning symptoms. Do not take other anti-inflammatories, such as ibuprofen with the diclofenac. If you find that the ibuprofen is more effective, then you may take that instead of the Diclofenac. Take the Skelaxin at night until you know how it affects you, as it will make you sleepy/groggy. Follow up with your primary care provider in 1-2 days. Prescriptions: Metaxalone [Skelaxin] 400 mg PO QID PRN #30 tablet PRN Reason: Pain Diclofenac Sodium [Voltaren] 75 mg PO BID PRN #30 tab PRN Reason: Pain Is patient prescribed a controlled substance at d/c from ED?: No Referrals: Nonstaff,Physician [Primary Care Provider] - 1-2 days
[2022-04-15 11:43] VITALS: BP 111/78; PULSE 74; TEMP 97.8
== END 2022-04-15 11:43 | disposition home or self-care (01) ==
LOC: EC 09:44
DX: S86.911A Strain of unspecified muscle(s) and tendon(s) at lower leg level, right leg, initial encounter (principal); J44.9 Chronic obstructive pulmonary disease, unspecified; Z88.5 Allergy status to narcotic agent; Z91.040 Latex allergy status; Z88.0 Allergy status to penicillin; W19.XXXA Unspecified fall, initial encounter
CPT/HCPCS: 72110; 73502; 73552; 99283; 96372; J1885